=== PATIENT | female | born 1965 | race Caucasian/White ===

== ENCOUNTER 2017-03-28 08:52 | Emergency (ER) | payer OTHER, MEDICAID ==
[~2017-03-28 08:52] MED LIST: AMBIEN10 MG PO; AMOXICILLIN500 MG PO; BACTRIM1 TAB PO; CYMBALTA60 M1 PO; DEXALONE30 MG PO; KEPPRA500 MG PO; KLO0.5 PO; LAC PO; MAC100 PO; NOR10T PO; OXYC PO; SIMVASTATIN20 M1 PO; ZOC10 PO
[2017-03-28 10:04] LABS: CALCIUM 8.5 mg/dL (8.5-10.1); CHLORIDE SERUM 106 mmol/L (98-107); CREATININE SERUM 0.9 mg/dL (0.6-1.0); GFR1 > 60 mL/min; GLUCOSE SERUM 84 mg/dL (74-106); POTASSIUM SERUM 3.5 mmol/L (3.5-5.1); SODIUM SERUM 141 mmol/L (136-145)
[2017-03-28 10:08] LABS: ALKALINE PHOSPHATASE 131 U/L (46-116); ALT/SGPT 26 U/L (14-59); AST/SGOT 23 U/L (15-37); LIPASE 90 IU/L (73-393); TOTAL PROTEIN, SERUM 6.8 g/dL (6.4-8.2)
[2017-03-28 10:10] LABS: BASOPHIL % 0.6 % (0-2); PLATELET COUNT 322 x10^3mcL (130-400); RED CELL DISTRIBUTION WIDTH 13.2 % (11.5-14.5)
[2017-03-28 10:14] LABS: ALBUMIN 3.2 g/dL (3.4-5.0)
[2017-03-28 11:20] VITALS: BP 157/92
== END 2017-03-28 12:04 | disposition home or self-care (01) ==
LOC: ED 08:52
PROVIDERS: Emergency Medicine
DX: G89.29 Other chronic pain (principal); R10.30 Lower abdominal pain, unspecified; M54.9 Dorsalgia, unspecified; R03.0 Elevated blood-pressure reading, without diagnosis of hypertension; R51 Headache; R11.2 Nausea with vomiting, unspecified; M79.89 Other specified soft tissue disorders; Z90.710 Acquired absence of both cervix and uterus
CPT/HCPCS: J1885; J2765; J3010; J7030; Q0092

== ENCOUNTER 2017-04-04 13:32 | Emergency (ER) | payer OTHER, MEDICAID ==
[~2017-04-04] VITALS: Ht 170.2 cm; Wt 90.7 kg
[2017-04-04 14:45] LABS: BASOPHIL % 0.7 % (0-2); PLATELET COUNT 378 x10^3mcL (130-400); RED CELL DISTRIBUTION WIDTH 13.3 % (11.5-14.5)
[2017-04-04 15:00] LABS: CALCIUM 8.7 mg/dL (8.5-10.1); CARBON DIOXIDE 27.9 mmol/L (21-32); CHLORIDE SERUM 103 mmol/L (98-107); CREATININE SERUM 0.8 mg/dL (0.6-1.0); GFR1 > 60 mL/min; GLUCOSE SERUM 92 mg/dL (74-106); POTASSIUM SERUM 3.5 mmol/L (3.5-5.1); SODIUM SERUM 139 mmol/L (136-145)
[2017-04-04 15:04] LABS: ALBUMIN 3.4 g/dL (3.4-5.0); ALKALINE PHOSPHATASE 107 U/L (46-116); ALT/SGPT 20 U/L (14-59); AST/SGOT 20 U/L (15-37); BILIRUBIN TOTAL 0.3 mg/dL (0.20-1.00)
[2017-04-04 16:24] VITALS: BP 138/91
== END 2017-04-04 16:24 | disposition home or self-care (01) ==
LOC: ED 13:32
PROVIDERS: Emergency Medicine
DX: I87.8 Other specified disorders of veins (principal); I16.0 Hypertensive urgency; M79.1 Myalgia; Z90.710 Acquired absence of both cervix and uterus; Z87.19 Personal history of other diseases of the digestive system
CPT/HCPCS: 36415; Q0092